=== PATIENT | male | born 1980 | race Caucasian/White ===

== ENCOUNTER → 2017-08-18 12:46 | Outpatient (CLI) | payer BC, SELFPAY ==
--- NOTE | 2017-08-18 12:54 | XR_ITS ---
XR hand RT min 3V HISTORY: ITS.REASON: FINGER PAIN DUE TO INJURY ORDERING PHYSICIAN: Jessica Ibarra PATIENT AGE: 37 years COMPARISON: None FINDINGS: There is a minimal displaced avulsion fracture involving the proximal and dorsal aspect of the distal phalanx of the middle finger. This is displaced proximally x 1 mm. No other significant anomalies are evident. This fracture is age indeterminate. Please correlate with clinical findings. IMPRESSION: Minimally displaced avulsion fracture at the distal phalanx of the middle finger age-indeterminate
== END ==
PROVIDERS: PCP Internal Medicine Adolescent Medicine; Visit Provider Nurse Practitioner Family
DX: M79.644 Pain in right finger(s) (principal); Y93.K9 Activity, other involving animal care
CPT/HCPCS: 73130

== ENCOUNTER 2017-11-01 15:30 | Outpatient (RCR) | payer BC, SELFPAY | END 2017-11-01 15:31 | disposition home or self-care (01) | LOC: PT 15:30 | PROVIDERS: Family Provider Internal Medicine Adolescent Medicine; PCP Internal Medicine Adolescent Medicine; Visit Provider Orthopaedic Surgery | DX: M79.641 Pain in right hand (principal); R60.0 Localized edema | CPT/HCPCS: 97110; 97140; 97161; 97760 ==

== ENCOUNTER → 2020-09-30 17:11 | Outpatient (CLI) | payer BC, SELFPAY | LOC: COVID.OUT 17:12 | PROVIDERS: PCP Internal Medicine Adolescent Medicine; Visit Provider Nurse Practitioner Family | DX: Z20.822 Contact with and (suspected) exposure to COVID-19 (principal); R50.9 Fever, unspecified | CPT/HCPCS: U0003 ==

== ENCOUNTER 2021-03-13 07:50 | Outpatient (CLI) | payer BC, SELFPAY ==
[2021-03-13] VITALS (9 sets, daily range): BP systolic 131–147; BP diastolic 71–82; PULSE 75–100; RESP 22; TEMP 37.2; O2SAT 93–100; BMI 42.8
== END 2021-03-13 10:47 | disposition home or self-care (01) ==
LOC: INF 07:53
PROVIDERS: PCP Internal Medicine Adolescent Medicine; Visit Provider Internal Medicine Adolescent Medicine
DX: U07.1 COVID-19 (principal)
CPT/HCPCS: 96365

== ENCOUNTER 2021-03-15 14:51 | Emergency (ER) | payer BC, SELFPAY ==
[2021-03-15 14:54] VITALS: BP 129/74; RESP 18; TEMP 36.6; O2SAT 93; BMI 40.4
--- NOTE | 2021-03-15 15:32 | HMH.EDNVD ---
ED Disposition Clinical Impression: Gastroenteritis Disposition: Home, Self-Care Condition on Discharge: Good Instructions: DI for Diarrhea and Traveler's Diarrhea -- Adult, DI for Nausea -- Adult Additional Instructions: Please isolate yourself from others in order to avoid spreading COVID-19. You may take [id number] antidiarrheal medicine. Stick with a clear liquid diet for the next few days. Take all medications as prescribed. Return to the emergency department if you feel worse in any way. Follow-up with your primary care physician in 4 to 5 days if you do not improve. Prescriptions: Ondansetron [Ondansetron Odt 8mg Tab] 8 mg PO QID 4 Days #16 tab Transmission Status: Pending to [id number] Referrals: Jamie Walden MD [Primary Care Provider] - - Critical Care Critical Care Time: No Attestation: On 03/15/21, the high probability of a clinically significant, sudden or life threatening deterioration of the following system(s) required my full and direct attention, intervention and personal management. The time I documented below is in addition to time spent performing reported procedures but includes the following listed in this critical care notation. Medical Decision Making - Medical Records Medical records reviewed: Yes: I reviewed the patient's medical records. - Harsh Inquiry Pt receiving controlled substance: No Vital Signs: 03/15/21 14:54 Temperature 97.9 F Temperature Source Oral Respiratory Rate 18 Blood Pressure [Right Arm] 129/74 Blood Pressure Mean [Right Arm] 92 Blood Pressure Source [Right Arm] Automatic Cuff 02 Sat by Pulse Oximetry 93 L Oxygen Delivery Method Room Air - Lab Data Lab results reviewed: Yes: I reviewed the patient's lab results. Lab Results 03/15/21 15:25: WBC 3.8 L, RBC 4.60, Hgb 14.6, Hct 42.7, MCV 92.8, MCH 31.8 H, MCHC 34.3, RDW 13.3, Plt Count 153, MPV 8.6, Neut % (Auto) 56.3, Lymph % (Auto) 37.1, [place] % (Auto) 5.6, Eos % (Auto) 0.1, Baso % (Auto) 0.8, Neut # (Auto) 2.1, Lymph # (Auto) 1.4, [place] # (Auto) 0.2, Eos # (Auto) 0.0, Baso # (Auto) 0.0 03/15/21 15:25: Sodium 138, Potassium 3.7, Chloride 102, Carbon Dioxide 28, Anion Gap 11.7, BUN 8 L, Creatinine 0.90, Estimated Creat Clear 190, Estimated GFR 93, Est GFR ( Amer) 113, Glucose 108 H, Calcium 8.5, Total Bilirubin 1.1, AST 72 H, ALT 50, Alkaline Phosphatase 76, Total Protein 7.1, Albumin 3.7, Globulin 3.4 H, Albumin/Globulin Ratio 1.1, Lipase 97 Result diagrams: 03/15/21 15:25 03/15/21 15:25 Orders (Tests/Meds): ED MEDICATIONS Discontinued Medications Generic Name Dose Route Start Last Admin Trade Name Magedq PRN Reason Stop Dose Admin Ondansetron HCl 4 mg 03/15/21 15:39 03/15/21 16:04 Ondansetron 4mg/2ml Vial IV 03/15/21 15:40 4 mg ONCE ONE Administration Medical Decision Narrative: The patient is now tolerating fluids by mouth without vomiting. Patient has a known history of COVID-19. I suspect that his symptoms are secondary to COVID-19. The patient's laboratory work-up was essentially unremarkable with the exception of a low white blood cell count which is a expected finding with COVID-19. The patient will be discharged in stable and improved condition with a prescription for Zofran. Nausea/Vomiting/Diarrhea HPI - General Chief complaint: Nausea/Vomiting/Diarrhea Stated complaint: covid pos 03/05 fever,bodyaches Time Seen by Provider: 03/15/21 15:32 Mode of Arrival: Ambulatory Limitations: No Limitations Description of Symptoms (Recalled from ER Triage Doc. by RN): patient tested positive for COVID pm 03/05. patient received Regen Cov infusion on 03/13/2021. patient states that he feels like he is not getting any better and now has increasing nausea and vomiting. patient is rehydrating self with fluids, but cannot eat solid foods yet. - History of Present Illness HPI Narrative: The patient presents to the emergency department complaining
[2021-03-15 15:47] LABS: Basophils % 0.8 % (0.1-2.0); Eosinophils % 0.1 % (0.1-12.0); Hematocrit 42.7 % (42.0-52.0); Hemoglobin 14.6 g/dL (14.1-18.0); Lymphocytes # 1.4 K/mm3 (0.7-4.5); Lymphocytes % 37.1 % (10-50); Mean Corpuscular HGB Conc 34.3 g/dL (31.8-35.4); Mean Corpuscular Hemoglobin 31.8 pg (27.0-31.2); Mean Corpuscular Volume 92.8 fl (80-94); Mean Platelet Volume 8.6 fl (7.4-10.4); Monocytes # 0.2 K/mm3 (0.1-1.0); Monocytes % 5.6 % (1.7-9.3); Neutrophils # 2.1 K/mm3 (1.8-7.8); Neutrophils % 56.3 % (37.0-80.0); Platelet Count 153 K/mm3 (142-424); Red Cell Distribution Width 13.3 % (11.5-17.5); White Blood Count 3.8 K/mm3 (4.8-10.8)
[2021-03-15 15:49] LABS: Chloride 102 mmol/L (98-107); Potassium 3.7 mmoL/L (3.5-5.1); Sodium 138 mmol/L (136-145)
[2021-03-15 15:51] LABS: Alanine Aminotransferase 50 U/L (12-78); Aspartate Amino Transferase 72 U/L (17-59); Blood Urea Nitrogen 8 mg/dl (9-20); Creatinine Clearance Estimated 190 mL/min (50-200); Estimated Glomerular Filt Rate 93 ml/min (>60); GFR (African American) 113 ML/MIN (>60)
[2021-03-15 15:52] LABS: Albumin Level 3.7 g/dl (3.5-5.0); Albumin/Globulin Ratio 1.1 (1.1-1.8); Alkaline Phosphatase 76 U/L (38-126); Anion Gap 11.7 mEq/L (5-15); Bilirubin,Total 1.1 mg/dl (0.2-1.3); Calcium 8.5 mg/dl (8.4-10.2); Carbon Dioxide 28 mmol/L (22.0-30.0); Globulin 3.4 g/dL (1.3-3.2); Glucose 108 mg/dl (74-100); Lipase 97 U/L (23-300); Total Protein,Serum 7.1 g/dl (6.3-8.2)
[2021-03-15 16:50] VITALS: BP 131/83; PULSE 70; RESP 18; TEMP 37.1; O2SAT 96
== END 2021-03-15 16:59 | disposition home or self-care (01) ==
PROVIDERS: Emergency Provider Emergency Medicine; PCP Internal Medicine Adolescent Medicine
DX: K52.9 Noninfective gastroenteritis and colitis, unspecified (principal); U07.1 COVID-19
CPT/HCPCS: 80053; 83690; 85025; 96374; 99282; J2405

== ENCOUNTER 2022-12-18 13:24 | Emergency (ER) | payer BC, SELFPAY ==
[2022-12-18 13:35] VITALS: BP 131/86; PULSE 74; RESP 18; TEMP 36.7; O2SAT 100; BMI 37.7
[2022-12-18 13:57] LABS: UTC Strep Screen (Rapid) Negative (Negative)
[2022-12-18 13:58] VITALS: BP 131/86; PULSE 74; RESP 18; TEMP 36.7; O2SAT 100
--- NOTE | 2022-12-18 14:07 | EXP.UTC ---
Discharge Plan Disposition Patient Disposition: Home, Self-Care Condition: Good Prescriptions Prescriptions: New azithromycin [azithromycin] 250 mg tablet 250 mg PO DIRECTED Qty: 6 0RF Rx Instructions: Take two (2) tablets on day #1, then one (1) tablet day #2 thru #5 Referrals Follow up/Referrals: Jamie Walden MD [Primary Care Provider] - See instructions Activity Restrictions/Add. Instructions Additional Instructions/Restrictions: Change toothbrush and toothpaste 24-48 hours after starting antibiotics Tylenol or Motrin as needed for fever or pain Encourage fluids, water, Gatorade, Powerade, try cold fluids, popsicles, ice cream will make it feel better You are contagious for 24 hours. Avoid kissing anyone, no eating or drinking after anyone. You are contagious. Follow-up the ER for new or worsening symptoms or no noticeable improvement over the next 24-48 hours. Follow-up with PCP this week. Clinical Impressions Clinical Impression: Strep sore throat Instructions Patient Instructions: DI for Strep Throat Discharge ED Provider: Giancarlo ([facility])Maryam [facility] [place] HPI General Stated complaint: sore throat, cough Mode of Arrival: Ambulatory Source of Information: Patient Limitations: No Limitations Time Seen by Provider: 12/18/22 14:07 Description of Symptoms (Recalled from Triage Doc. by RN): PATIENT C/O SORE THROAT AND COUGH SINCE YESTERDAY HEENT Symptoms (Recalled from RN notes): Yes Resp Symptoms (Recalled from RN notes): Yes Skin Symptoms (Recalled from RN notes): No MS Symptoms (Recalled from RN notes): No Functional Status (Recalled from RN notes): WNL History of Present Illness Provider Complaint: 42 yr old male presents with sore throat since , son has strep Related Data Previous Rx's Medication Instructions Recorded azithromycin 250 mg tablet 250 mg PO DIRECTED #6 tabs 12/18/22 Allergies Allergy/AdvReac Type Severity Reaction Status Date / Time ibuprofen [IBUPROFEN] Allergy Unknown Verified 03/30/18 19:18 Worker's Comp Is this a Worker's Comp case?: No [facility] Disclaimer: The information contained in this section may have been updated after the patient was seen, as this information can be updated by other users. Social History , [employer]) Smoking Status: Never smoker alcohol intake: never substance use type: denies use current occupational status: employed Travel in the last 8 weeks: None ROS Obtained: Yes All systems reviewed & no additional complaints except as documented Constitutional Constitutional: Reports system reviewed and no additional complaints, except as documented and Reports as per HPI Eyes Eyes: Reports system reviewed and no additional complaints, except as documented ENT Ears, Nose, Mouth, and Throat: Reports system reviewed and no additional complaints, except as documented, Reports as per HPI and Reports sore throat Cardiovascular Cardiovascular: Reports system reviewed and no additional complaints, except as documented Respiratory Respiratory: Reports system reviewed and no additional complaints, except as documented Gastrointestinal Gastrointestingal: Reports system reviewed and no additional complaints, except as documented Musculoskeletal Musculoskeletal: Reports system reviewed and no additional complaints, except as documented Neurologic Neurologic: Reports system reviewed and no additional complaints, except as documented Endocrine Endocrine: Reports system reviewed and no additional complaints, except as documented Hematologic/Lymphatic Henatologic/Lymphatic: Reports system reviewed and no additional complaints, except as documented Allergic/Immunologic Allergic/Immunologic: Reports system reviewed and no additional complaints, except as documented Physical Exam General General appearance: alert and in no apparent distress Head Head exam: atraumatic Eye Eye exam: Present
== END 2022-12-18 14:08 | disposition home or self-care (01) ==
PROVIDERS: Emergency Provider Nurse Practitioner Family; PCP Internal Medicine Adolescent Medicine
DX: J02.0 Streptococcal pharyngitis (principal)
CPT/HCPCS: 87880; 99204; 99212; G0463

== ENCOUNTER 2023-09-11 10:02 | Emergency (ER) | payer BC, SELFPAY ==
[2023-09-11 10:20] VITALS: BP 130/90; PULSE 72; RESP 18; TEMP 36.9; O2SAT 97; BMI 46.3
--- NOTE | 2023-09-11 10:22 | ED_ITS ---
Discharge Plan Disposition Patient Disposition: Home, Self-Care Condition: Good Prescriptions Prescriptions: New azithromycin [Zithromax] 250 mg tablet 250 mg PO UD DOSE PK Qty: 6 0RF Rx Instructions: Take two (2) tablets today, then one (1) tablet days #2 thru #5 benzonatate [benzonatate] 100 mg capsule 100 mg PO TIDP PRN (Reason: Cough) Qty: 30 0RF methylprednisolone 4 mg Tablets,Dose Pack 4 mg PO DIRECTED 6 Days Qty: 21 0RF Rx Instructions: Take 1 pack as directed for 6 days Referrals Follow up/Referrals: Jamie Walden MD [Primary Care Provider] - See instructions Activity Restrictions/Add. Instructions Additional Instructions/Restrictions: Drink plenty of fluids. Take tylenol or ibuprofen for pain or fever. Take the medications as directed. Follow up with your regular doctor. GO TO THE ER FOR ANY WORSENING SYMPTOMS Clinical Impressions Clinical Impression: Sinusitis Instructions Patient Instructions: Sinusitis, DI for Sinusitis Discharge ED Provider: Rebel Johnson [facility] General Stated complaint: congestion, runny nose, pain in face Time Seen by Provider: 09/11/23 10:21 History of Present Illness Provider Complaint: He states that for the past 5 days he has had worsening sinus congestion and sinus pressure. Related Data Previous Rx's Medication Instructions Recorded azithromycin 250 mg tablet 250 mg PO UD DOSE PK #6 tabs 09/11/23 (Zithromax) benzonatate 100 mg capsule 100 mg PO TIDP PRN Cough #30 caps 09/11/23 methylprednisolone 4 mg tablets in 4 mg PO DIRECTED 6 days #21 tabs 09/11/23 a dose pack Allergies Allergy/AdvReac Type Severity Reaction Status Date / Time ibuprofen [IBUPROFEN] Allergy Unknown Verified 09/11/23 10:30 [facility] Disclaimer: The information contained in this section may have been updated after the patient was seen, as this information can be updated by other users. Social History Smoking Status: Never smoker alcohol intake: never substance use type: denies use current occupational status: employed Travel in the last 8 weeks: None ROS Obtained: Yes All systems reviewed & no additional complaints except as documented Constitutional Constitutional: Reports poor appetite Eyes Eyes: Reports system reviewed and no additional complaints, except as documented ENT Ears, Nose, Mouth, and Throat: Reports as per HPI Cardiovascular Cardiovascular: Reports system reviewed and no additional complaints, except as documented and Denies chest pain Respiratory Respiratory: Denies shortness of breath, Reports chest congestion, Reports cough, Denies stridor and Denies wheezing Gastrointestinal Gastrointestingal: Reports system reviewed and no additional complaints, except as documented; Denies abdominal pain, diarrhea or vomiting Musculoskeletal Musculoskeletal: Reports system reviewed and no additional complaints, except as documented and Denies arthralgias Integumentary/Breasts Skin/Breast: Reports system reviewed and no additional complaints, except as documented and Denies rash Neurologic Neurologic: Denies paresthesias Allergic/Immunologic Allergic/Immunologic: Denies wheezing Physical Exam General General appearance: alert and in no apparent distress Eye Eye exam: Present normal appearance, PERRL and EOMI ENT ENT exam: Present mucous membranes moist and normal external ear exam Expanded ENT Exam External ear exam: Present normal external inspection TM/Canal exam: Bilateral TM: erythema and bulging Nose exam: Absent sinus tenderness Nasal speculum exam: Bilateral: normal Mouth exam: Present normal external inspection; Absent drooling Teeth exam: Present normal inspection Throat exam: Present tonsillar erythema and tonsillomegaly Neck Neck exam: Present normal inspection, full ROM and trachea midline; Absent tenderness, lymphadenopathy or thyromegaly Chest Chest inspection: Present normal inspection and symmetric chest wall rise; Absent tenderness or rash Respiratory Respiratory exam: Present normal lung sounds bilaterally; Absent respiratory distress, wheezes, stridor or accessory muscle use Cardiovascular Cardiovascular exam: Present regular rate, normal rhythm and normal heart sounds Abdominal Exam Abdominal exam: Present soft; Absent distention, tenderness, guarding, rebound or rigidity Extremities Exam Extremities exam: Present normal inspection, full ROM and normal capillary refill; Absent tenderness or calf tenderness Back Exam Back exam: Present normal inspection and full ROM; Absent tenderness Neurological Exam Neurological exam: Present alert and oriented X3 Psychiatric Psychiatric exam: Present normal affect and normal mood Skin Skin exam: Present warm, dry, intact and normal color Lymphatic Lymphatic Findings: no adenopathy Medical Decision Making Medical Records Medical records reviewed: No I reviewed the patient's medical records. Harsh Inquiry Pt receiving controlled substance: No
[2023-09-11 11:00] VITALS: BP 130/90; PULSE 72; RESP 18; TEMP 36.9; O2SAT 97
== END 2023-09-11 11:00 | disposition home or self-care (01) ==
PROVIDERS: Emergency Provider Nurse Practitioner Family; PCP Internal Medicine Adolescent Medicine
DX: J01.90 Acute sinusitis, unspecified (principal); R09.81 Nasal congestion; R05.9 Cough, unspecified
CPT/HCPCS: 99212; 99214; G0463

== ENCOUNTER 2024-01-28 11:25 | Emergency (ER) | payer BC, SELFPAY ==
[2024-01-28 11:30] VITALS: BP 124/67; PULSE 65; RESP 18; TEMP 36.7; O2SAT 100; BMI 43.0
--- NOTE | 2024-01-28 11:41 | XR_ITS ---
PROCEDURE INFORMATION: Exam: XR Left Ribs with PA Chest Exam date and time: 01/28/2024 11:40 AM Age: 43 years old Clinical indication: Injury or trauma; Fall; Rib area, left side; Blunt trauma TECHNIQUE: Imaging protocol: Radiologic exam of the left ribs with PA chest. Views: 3 views COMPARISON: No relevant prior studies available. FINDINGS: Lungs: No consolidation or lung nodules. Pleural spaces: No pleural effusion. No pneumothorax. Heart/Mediastinum: No abnormalities. No cardiomegaly. No pulmonary vascular congestion. Bones/joints: No fractures or bone lesions. IMPRESSION: No acute findings in the chest. No rib fractures.
--- NOTE | 2024-01-28 11:42 | EXP.UTC ---
Discharge Plan Disposition Patient Disposition: Home, Self-Care Condition: Good Referrals Follow up/Referrals: Jamie Walden MD [Primary Care Provider] - See instructions Activity Restrictions/Add. Instructions Additional Instructions/Restrictions: Over the counter Motrin and/or Tylenol for pain Over the countr Lidocaine patches may help with pain Make sure to take deep breaths and cough Follow up with your Family Doctor if no improvment or any worsening of symptoms straight to ER if any life threatening symptoms Clinical Impressions Clinical Impression: Pain in rib Instructions Patient Instructions: DI for Rib Contusion Discharge ED Provider: Elba Navarro [facility] General Stated complaint: ao 01/26 rib pain Mode of Arrival: Ambulatory Source of Information: Patient Limitations: No Limitations Time Seen by Provider: 01/28/24 11:42 Description of Symptoms (Recalled from Triage Doc. 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 and fell and landed on his left side States that there was a raise in the ground there and he hit his left ribs on it States since then he has been having pain in his left ribs worse with movement and deep breath so today he came in to get checked worried he may have a broken rib Related Data Allergies Allergy/AdvReac Type Severity Reaction Status Date / Time ibuprofen [IBUPROFEN] Allergy Unknown Verified 09/11/23 10:30 Worker's Comp Is this a Worker's Comp case?: No [facility] Disclaimer: The information contained in this section may have been updated after the patient was seen, as this information can be updated by other users. Social History Smoking Status: Never smoker alcohol intake: never substance use type: denies use current occupational status: employed Travel in the last 8 weeks: None ROS Obtained: Yes All systems reviewed & no additional complaints except as documented and Yes Systems reviewed as appropriate & no additional complaints except as documented Constitutional Constitutional: Reports system reviewed and no additional complaints, except as documented and Reports as per HPI Cardiovascular Cardiovascular: Reports system reviewed and no additional complaints, except as documented, Reports as per HPI and Denies chest pain Respiratory Respiratory: Reports system reviewed and no additional complaints, except as documented, Reports as per HPI, Reports pain on inspiration, Reports pain with cough and Reports other Comments: Pain in left ribs with movement and breathing after falling yesterday Physical Exam General General appearance: alert and in no apparent distress ENT ENT exam: Present mucous membranes moist Respiratory Respiratory exam: Present normal lung sounds bilaterally; Absent respiratory distress or wheezes Cardiovascular Cardiovascular exam: Present regular rate, normal rhythm and normal heart sounds Neurological Exam Neurological exam: Present alert, oriented X3 and normal gait Medical Decision Making Harsh Inquiry Pt receiving controlled substance: No Harsh was queried for this patient: No Vital Signs: 01/28/24 11:30 Temperature 98.0 F Temperature Source Oral Pulse Rate [Left Brachial] 65 Respiratory Rate 18 Blood Pressure [Left Arm] 124/67 Blood Pressure Mean [Left Arm] 86 Blood Pressure Source [Left Arm] Automatic Cuff Blood Pressure Position [Left Arm] Sitting 02 Sat by Pulse Oximetry 100 Oxygen Delivery Method Room Air Orders (Tests/Meds): ORDERS Category Date Time Status XR ribs LT min 3V w CXR1V Stat Exams 01/28/24 11:41 Ordered Radiology Data #1: Image(s): Chest (ribs) Image Reviewed: Yes I have reviewed radiologist's interpretation IMPRESSION: No acute findings in the chest. No rib fractures.
[2024-01-28 13:20] VITALS: BP 124/67; PULSE 65; RESP 18; TEMP 36.7; O2SAT 100
== END 2024-01-28 13:24 | disposition home or self-care (01) ==
PROVIDERS: Emergency Provider Nurse Practitioner; PCP Internal Medicine Adolescent Medicine
DX: R07.81 Pleurodynia (principal); R07.1 Chest pain on breathing; W01.198A Fall on same level from slipping, tripping and stumbling with subsequent striking against other object, initial encounter
CPT/HCPCS: 71101; 99212; 99213; G0463

== ENCOUNTER 2024-06-10 07:36 | Outpatient (CLI) | payer BC, SELFPAY ==
[2024-06-10 07:57] LABS: Basophils # 0.1 K/mm3 (0-0.2); Basophils % 0.7 % (0.1-2.0); Eosinophils % 0.3 % (0.1-12.0); Hematocrit 44.2 % (42.0-52.0); Lymphocytes # 2.5 K/mm3 (0.7-4.5); Lymphocytes % 31.1 % (10-50); Mean Corpuscular HGB Conc 33.9 g/dL (31.8-35.4); Mean Corpuscular Hemoglobin 30.9 pg (27.0-31.2); Mean Corpuscular Volume 91.3 fl (80-94); Mean Platelet Volume 7.5 fl (7.4-10.4); Monocytes # 0.5 K/mm3 (0.1-1.0); Monocytes % 6.4 % (1.7-9.3); Neutrophils # 4.9 K/mm3 (1.8-7.8); Neutrophils % 61.5 % (37.0-80.0); Platelet Count 213 K/mm3 (142-424); Red Blood Count 4.85 M/mm3 (4.60-6.20); Red Cell Distribution Width 13.4 % (11.5-17.5)
[2024-06-10 08:36] LABS: Alanine Aminotransferase 48 U/L (12-78); Albumin Level 4.3 g/dl (3.5-5.0); Albumin/Globulin Ratio 1.4 (1.1-1.8); Alkaline Phosphatase 79 U/L (38-126); Anion Gap 13.1 mEq/L (5-15); Aspartate Amino Transferase 40 U/L (17-59); Bilirubin,Total 0.9 mg/dl (0.2-1.3); Blood Urea Nitrogen 18 mg/dl (9-20); Calcium 9.4 mg/dl (8.4-10.2); Carbon Dioxide 26 mmol/L (22.0-30.0); Chloride 106 mmol/L (98-107); Chol/HDL Ratio 3.6 (1-3.5); Cholesterol 162 mg/dl (140-200); Estimated Glomerular Filt Rate 81 ml/min (>60); GFR (African American) 98 ML/MIN (>60); Glucose 109 mg/dl (74-100); HDL Cholesterol 45 mg/dl (40-60); Potassium 4.1 mmoL/L (3.5-5.1); Sodium 141 mmol/L (136-145); Total Protein,Serum 7.3 g/dl (6.3-8.2); Triglycerides 143 mg/dl (30-150); VLDL Cholesterol 29 mg/dL (0-40)
[2024-06-10 08:41] LABS: Hemoglobin A1C 5.1 % (4.0-6.0)
[2024-06-10 08:47] LABS: Direct LDL Cholesterol 97.92 mg/dL (100-129)
[2024-06-10 09:06] LABS: Prostate Specific Ag Screen 0.7 ng/ml (0.0-4.0)
== END 2024-06-10 23:59 | disposition home or self-care (01) ==
LOC: LAB 07:39
PROVIDERS: PCP Internal Medicine Adolescent Medicine; Visit Provider Internal Medicine Adolescent Medicine
DX: Z12.5 Encounter for screening for malignant neoplasm of prostate (principal); E78.5 Hyperlipidemia, unspecified
CPT/HCPCS: 36415; 80053; 80061; 83036; 85025; G0103

== ENCOUNTER 2024-06-24 07:57 | Emergency (ER) | payer BC, SELFPAY ==
[2024-06-24 08:05] VITALS: BP 122/77; PULSE 80; RESP 19; TEMP 36.8; O2SAT 98; BMI 41.5
--- NOTE | 2024-06-24 08:20 | ED_ITS ---
Discharge Plan Disposition Patient Disposition: Home, Self-Care Condition: Good Prescriptions Prescriptions: New amoxicillin 875 mg tablet 875 mg PO Q12H Qty: 20 0RF fluticasone propionate [Flonase Allergy Relief] 50 mcg/actuation spray,suspension 2 spray intranasal DAILY Qty: 16 0RF Rx Instructions: administer into each nostril daily Referrals Follow up/Referrals: Jamie Walden MD [Primary Care Provider] - See instructions Activity Restrictions/Add. Instructions Additional Instructions/Restrictions: *Monitor Temp, Over the counter Motrin or Tylenol as directed/as needed Tylenol every 4 hours and Motrin every 6 hours (as long as your family doctor has told you that you can take it) for fever or pain. and straight to ER if unable to lower temp less than 101.0 after medication given *Warm salt water gargles may help to soothe the throat *Throat Lozenges? *Warm fluids like tea with honey may help to soothe the throat? *Sleep elevated *Humidifier/Vaporizer *Flonase 2 sprays in each nostril daily but be aware that it may take 2-3 days before you notice improvement Your throat swab was sent for culture. Those results are typically sent to your primary care. Be sure to follow up in 2-3 days with your family doctor/primary care physician if no improvement so they can review those result and treat if necessary. If you don?t have a primary care doctor, I recommend you get one but in the mean time, you will have to return to a walk in clinic Follow up IMMEDIATELY for new or worsening symptoms or no Noticeable improvement over the next 48-72 hours. 911 for difficulty breathing or swallowing Clinical Impressions Clinical Impression: Otitis media Instructions Patient Instructions: Middle Ear Infection, Ear Infections (Alternative Therapy), Amoxicillin Print Language Print Language: Upper Sorbian Discharge ED Provider: Elba Navarro [facility] [place] HPI General Stated complaint: sore throat, cough Mode of Arrival: Ambulatory Source of Information: Patient Limitations: No Limitations Time Seen by Provider: 06/24/24 08:20 Description of Symptoms (Recalled from Triage Doc. by RN): PATIENT C/O SORE THROAT AND RIGHT EAR PAIN SINCE MONDAY MORNING HEENT Symptoms (Recalled from RN notes): Yes Resp Symptoms (Recalled from RN notes): No Skin Symptoms (Recalled from RN notes): No MS Symptoms (Recalled from RN notes): No Functional Status (Recalled from RN notes): WNL History of Present Illness Provider Complaint: Patient states that for the last couple of days he has been having pain in his right ear and sore throat States today his ear was bothering him more so he came in to get checked worried he may have an ear infection or strep throat Related Data Previous Rx's ?Medication ?Instructions ?Recorded amoxicillin 875 mg tablet 875 mg PO Q12H #20 tabs 06/24/24 fluticasone propionate 50 2 spray intranasal DAILY #16 grams 06/24/24 mcg/actuation nasal spray,suspension (Flonase Allergy Relief) Allergies Allergy/AdvReac Type Severity Reaction Status Date / Time ibuprofen (IBUPROFEN) Allergy Unknown Verified 09/11/23 10:30 Worker's Comp Is this a Worker's Comp case?: No [facility] Disclaimer: The information contained in this section may have been updated after the patient was seen, as this information can be updated by other users. Medical History (Updated 06/24/24 @ 08:40 by Elba Navarro APRN) No significant past medical history Social History Smoking Status: Never smoker alcohol intake: never substance use type: denies use current occupational status: employed Travel in the last 8 weeks: None Have you lived/traveled outside [place] in past 30 days?: No Contact w/someone who lives/traveled outside US past 30 days?: No Exposure to someone with infectious disease in past 14 days?: No Do you have a fever (greater than 100.4 F or 38 C)?: No Have you tested positive for COVID-19: No Exposed to someone with COVID-19 in past 14 days?: No Do you have a sore throat?: Yes Do you have a cough?: Yes Do you have any weakness?: No Do you have any diarrhea?: No Are you experiencing any unusual bleeding?: No Do you have any muscle aches/pain?: No Do you have any abdominal pain?: No Are you experiencing loss of taste or smell?: No ROS Obtained: Yes All systems reviewed & no additional complaints except as documented and Yes Systems reviewed as appropriate & no additional complaints except as documented Constitutional Constitutional: Reports system reviewed and no additional complaints, except as documented and Reports as per HPI ENT Ears, Nose, Mouth, and Throat: Reports system reviewed and no additional complaints, except as documented, Reports as per HPI, Reports otalgia and Reports sore throat Cardiovascular Cardiovascular: Reports system reviewed and no additional complaints, except as documented and Reports as per HPI Respiratory Respiratory: Reports system reviewed and no additional complaints, except as documented and Reports as per HPI Gastrointestinal Gastrointestingal: Reports system reviewed and no additional complaints, except as documented and as per HPI Genitourinary Male Genitourinary: Reports system reviewed and no additional complaints, except as documented and Reports as per HPI Musculoskeletal Musculoskeletal: Reports system reviewed and no additional complaints, except as documented and Reports as per HPI Physical Exam General General appearance: alert and in no apparent distress ENT ENT exam: Present mucous membranes moist Expanded ENT Exam TM/Canal exam: Right TM: erythema and bulging Nose exam: Absent sinus tenderness Throat exam: Present tonsillar erythema Respiratory Respiratory exam: Present normal lung sounds bilaterally; Absent respiratory distress or wheezes Cardiovascular Cardiovascular exam: Present regular rate, normal rhythm and normal heart sounds Abdominal Exam Abdominal exam: Present soft and normal bowel sounds; Absent distention or t enderness Neurological Exam Neurological exam: Present alert, oriented X3 and normal gait Medical Decision Making Medical Records Screening: Per USPSTF and CDC recommendations, given the prevalence of disease in our region, it is our hospital?s policy to screen for HIV and viral Hepatitis for all patients aged 18 and over and those with ongoing risk factors. Harsh Inquiry Pt receiving controlled substance: No Harsh was queried for this patient: No Vital Signs: 06/24/24 08:05 Temperature 98.3 F Temperature Source Oral Pulse Rate [Left Brachial] 80 Respiratory Rate 19 Blood Pressure [Left Arm] 122/77 Blood Pressure Mean [Left Arm] 92 Blood Pressure Source [Left Arm] Automatic Cuff Blood Pressure Position [Left Arm] Sitting 02 Sat by Pulse Oximetry 98 Oxygen Delivery Method Room Air Lab Data Lab results reviewed: Yes I reviewed the patient's lab results.
[2024-06-24 08:33] LABS: UTC Strep Screen (Rapid) Negative (Negative)
[2024-06-24 08:41] VITALS: BP 122/77; PULSE 80; RESP 19; TEMP 36.8; O2SAT 98
== END 2024-06-24 08:44 | disposition home or self-care (01) ==
PROVIDERS: Emergency Provider Nurse Practitioner; PCP Internal Medicine Adolescent Medicine
DX: H66.93 Otitis media, unspecified, bilateral (principal)
CPT/HCPCS: 87880; 99213; G0381

== ENCOUNTER 2025-04-17 11:30 | Emergency (ER) | payer BC, SELFPAY ==
[2025-04-17 11:43] VITALS: BP 144/70; PULSE 90; RESP 20; TEMP 36.9; O2SAT 98; BMI 43.0
--- NOTE | 2025-04-17 12:03 | CT_ITS ---
FINAL REPORT TECHNIQUE: Thin section axial images were obtained through the abdomen after intravenous contrast. Reconstruction images were obtained from the axial data. Exam was performed using dose reduction techniques. CLINICAL HISTORY: Periumbilical hernia reduced, severe abdominal pamela FINDINGS: The lung bases are clear. The liver is homogeneous. The gallbladder is present. The spleen is mildly enlarged. The adrenal and pancreas are unremarkable. There is no hydronephrosis or solid renal mass. There is no abdominal lymphadenopathy or ascites. There is a hernia just to the left midline and umbilicus. Abdominal wall defect measures 16 mm. There is fat and abnormal attenuation within the hernia sac, incarceration is not excluded. There is no evidence of small bowel obstruction. The appendix is normal. There is no pelvic lymphadenopathy or ascites. No acute osseous abnormalities identified. IMPRESSION: Paraumbilical hernia containing fat and abnormal attenuation, incarceration is not excluded. This does not contain GI tract. Reviewed, Interpreted and Dictated by Tiesha Qureshi MD Transcribed by Marleni Rogers Authenticated and [facility]
--- NOTE | 2025-04-17 12:04 | ED_ITS ---
Discharge Plan Disposition Patient Disposition: Home, Self-Care Referrals Follow up/Referrals: Jamie Walden MD [Primary Care Provider, Internal Medicine] - See instructions Jarocho Butterfield MD [Staff Physician, General Surgery] - See instructions Activity Restrictions/Add. Instructions Additional Instructions/Restrictions: At this time it was felt you are safe to be discharged home. If new or worsening symptoms please do not hesitate to return the emergency department. Please call and schedule appoint with Dr. Butterfield as soon as you are able. Clinical Impressions Clinical Impression: Periumbilical hernia Instructions Patient Instructions: DI for Acute Abdominal Pain Print Language Print Language: Upper Sorbian Discharge ED Provider: Marc Petersen General Adult HPI General Chief complaint: Abdominal Pain Stated complaint: abd pain Time Seen by Provider: 04/17/25 11:44 Mode of Arrival: Ambulatory Source of Information: Patient Description of Symptoms (Recalled from ER Triage Doc. by RN): severe abdominal pain. around the umbilicus area. hardened. pt states he has a hx of a hernia. History of Present Illness HPI narrative: Patient is a 44-year-old male who presents emergency department for evaluation of pain. He has a history of periumbilical hernia. No vomiting, last bowel movement this morning nonbloody. Moderate to severe periumbilical pain causing present here for continued evaluation. No other acute complaints at this time. No abdominal surgical history. Allergies to ibuprofen non-smoker. Please note that above description of symptoms, in this electronic medical record under categorization of recalled from ER triage doctor by RN are reflective of an initial nursing assessment, however, is not reflective of my full history and physical exam that was personally taken and clarified. Consequentially, this preceding description of symptoms, which may include the patient's categorized chief complaint in the EMR, do not reflect my personal clinical impression, and the ultimate description of history of present illness and patient stated complaints should be deferred to this section of the note. Unless stated otherwise or congruent with this section of the note, additional signs, symptoms, or incongruence should be interpreted as inaccurate with my clinical impression. Related Data Allergies Allergy/AdvReac Type Severity Reaction Status Date / Time ibuprofen (IBUPROFEN) Allergy Severe angioedema Verified 12/02/24 11:48 [facility] Disclaimer: The information contained in this section may have been updated after the patient was seen, as this information can be updated by other users. Medical History No significant past medical history Social History Smoking Status: Never smoker alcohol intake: never substance use type: denies use current occupational status: employed Travel in the last 8 weeks?: None Have you lived/traveled outside US in past 30 days?: No Contact w/someone who lives/traveled outside US past 30 days?: No Exposure to someone with infectious disease in past 14 days?: No Do you have a fever (greater than 100.4 F or 38 C)?: No Have you tested positive for COVID-19?: No Exposed to someone with COVID-19 in past 14 days?: No Do you have a sore throat?: No Do you have a cough?: No Do you have any weakness?: No Do you have any diarrhea?: No Are you experiencing any unusual bleeding?: No Do you have any muscle aches/pain?: No Do you have any abdominal pain?: No Are you experiencing loss of taste or smell?: No Other Medical History Have you received the Flu Vaccine for this season: No Have you received the Pneumonia Vaccine: No ROS Obtained: Yes Systems reviewed as appropriate & no additional complaints except as documented Physical Exam General General appearance: alert and in no apparent distress Head Head exam: atraumatic and normocephalic Eye Eye exam: Present PERRL and EOMI ENT ENT exam: Present mucous membranes moist Neck Neck exam: Present normal inspection Chest Chest inspection: Present normal inspection and symmetric chest wall rise Respiratory Respiratory exam: Present normal lung sounds bilaterally; Absent respiratory distress Cardiovascular Cardiovascular exam: Present regular rate and normal rhythm Abdominal Exam Abdominal exam: Present soft and tenderness (Periumbilical hernia that is not dusky, is reducible with constant pressure although painful. Periumbilical tenderness. No rebound.); Absent rigidity Extremities Exam Extremities exam: Present normal inspection Neurological Exam Neurological exam: Present alert Psychiatric Psychiatric exam: Present normal affect Skin Skin exam: Present warm and dry Medical Decision Making Medical Records Screening: Per USPSTF and CDC recommendations, given the prevalence of disease in our region, it is our hospital?s policy to screen for HIV and viral Hepatitis for all patients aged 18 and over and those with ongoing risk factors. Harsh Inquiry Pt receiving controlled substance: No Vital Signs: 04/17/25 11:43 04/17/25 12:17 04/17/25 12:31 Temperature 98.5 F Temperature Source Oral Pulse Rate 68 54 L Pulse Rate [Right] 90 Respiratory Rate 20 Blood Pressure 115/59 L 123/67 Blood Pressure [Right Arm] 144/70 H Blood Pressure Mean [Right Arm] 94 02 Sat by Pulse Oximetry 98 96 97 04/17/25 12:45 04/17/25 13:01 Temperature Temperature Source Pulse Rate 64 47 L Pulse Rate [Right] Respiratory Rate Blood Pressure 119/69 120/52 L Blood Pressure [Right Arm] Blood Pressure Mean [Right Arm] 02 Sat by Pulse Oximetry 97 97 Lab Data Lab Results 04/17/25 11:45: WBC 8.8, RBC 5.15, Hgb 16.1, Hct 46.9, MCV 91.1, MCH 31.3 H, MCHC 34.3, RDW 12.4, Plt Count 234, MPV 9.4, Neut % (Auto) 69.7, Lymph % (Auto) 22.6, Deuel % (Auto) 6.9, Eos % (Auto) 0.1, Baso % (Auto) 0.2, Neut # (Auto) 6.2, Lymph # (Auto) 2.0, Deuel # (Auto) 0.6, Eos # (Auto) 0.0, Baso # (Auto) 0.0, Sodium 140, Potassium 4.4, Chloride 101, Carbon Dioxide 29, Anion Gap 14.4, BUN 18, Creatinine 1.10, Estimated Creat Clear 88, Estimated GFR 72, Est GFR ( Amer) 88, Glucose 114 H, Lactate 1.2, Calcium 9.4, Total Bilirubin 1.3, AST 44, ALT 50, Alkaline Phosphatase 102, Troponin I < 0.01, Total Protein 8.2, Albumin 4.6, Globulin 3.6 H, Albumin/Globulin Ratio 1.3, Lipase 59, Urine Color Yellow, Urine Appearance Clear, Urine pH 6.0, Ur Specific Sanford 1.025, Urine Protein Negative, Urine Glucose (UA) Negative, Urine Ketones Negative, Urine Blood Negative, Urine Nitrate Negative, Urine Bilirubin Negative, Urine Urobilinogen 0.2, Ur Leukocyte Esterase Negative, Urine RBC None, Urine WBC None, Ur Squamous Epith Cells Occasional, Urine Bacteria Trace 04/17/25 11:45 04/17/25 11:45 Orders (Tests/Meds): ED MEDICATIONS Discontinued Medications Generic Name Dose Route Start Last Admin Trade Name Mirza PRN Reason Stop Dose Admin Acetaminophen 1,000 mg 04/17/25 12:03 04/17/25 12:20 Acetaminophen 1,000mg/100ml Vial IV 04/17/25 12:04 1,000 mg ONCE ONE Administration Iopamidol 75 ml 04/17/25 12:09 04/17/25 12:10 Iopamidol-370 (76%);100ml Bottle IV 04/17/25 12:10 75 ml ONCE ONE Administration Morphine Sulfate 4 mg 04/17/25 12:03 04/17/25 12:20 Morphine 4mg/Ml Syringe IV 04/17/25 12:04 4 mg ONCE ONE Administration Ondansetron HCl 4 mg 04/17/25 12:03 04/17/25 12:20 Ondansetron 4mg/2ml Vial IV 04/17/25 12:04 4 mg ONCE ONE Administration Sodium Chloride 10 ml 04/17/25 12:09 04/17/25 12:10 Sodium Chloride 0.9% 10ml Syr (Rad Only) IV 04/17/25 12:10 10 ml ONCE ONE Administration ORDERS Category Date Time Status CT abdomen pelvis w con Stat Cat Scan 04/17/25 12:03 Completed Complete Blood Count Auto Diff Stat Lab 04/17/25 11:45 Completed Comprehensive Metabolic Panel Stat Lab 04/17/25 11:45 Completed HIV Combo Stat Lab 04/17/25 11:45 Received Hepatitis C Ab Qual. W/ RFX Stat Lab 04/17/25 11:45 Received Lactic Acid Stat Lab 04/17/25 11:45 Completed Lipase Stat Lab 04/17/25 11:45 Completed Troponin I Q3H Lab 04/17/25 15:00 Ordered Troponin I Q3H Lab 04/17/25 18:00 Ordered Troponin I Stat Lab 04/17/25 11:45 Completed Urinalysis and Microscopic Stat Lab 04/17/25 11:45 Completed Medical Decision Narrative: In summary patient is a 44-year-old male with past medical history of scrota above presents emergency department for evaluation of abdominal pain in the setting of periumbilical hernia. Constant pressure was used which reduced the hernia, it is not dusky and is by definition approaching incarceration. Workup will be conducted with hematologic labs CT of abdomen pelvis with IV contrast. Initial inventions include multimodal pain control, antiemetic. Initial workup reviewed by me no significant leukocytosis no transfusable anemia no TENISHA or critical electrolyte abnormality initial troponin undetectably low lipase normal urinalysis interpreted by me and not consistent with infection. Periumbilical hernia as demonstrated that does not contain GI tract but contains fat. Upon repeat evaluation patient is asymptomatic. Given that he has a reducible hernia no other abdominal pathology at this time patient is appropriate for outpatient management was given multiple return precautions verbalized understanding will follow-up on an outpatient basis with Dr. Butterfield. Critical Care Critical Care Time Critical Care Time: No
[2025-04-17] MEDS: SODIUM CHLORIDE 0.9% 10ML SYR (RAD ONLY) 10 ML IV (12:10)
[2025-04-17] MEDS: IOPAMIDOL-370 (76%);100ML BOTTLE 75 ML IV (12:10)
[2025-04-17 12:12] LABS: Hematocrit 46.9 % (42.0-52.0); Hemoglobin 16.1 g/dL (14.1-18.0); Immature Granulocytes % 0.5 %; Mean Corpuscular HGB Conc 34.3 g/dL (31.8-35.4); Mean Corpuscular Hemoglobin 31.3 pg (27.0-31.2); Mean Corpuscular Volume 91.1 fl (80-94); Nucleated Red Blood Cells % 0 %; Platelet Count 234 K/mm3 (142-424); Red Blood Count 5.15 M/mm3 (4.60-6.20); Red Cell Distribution Width-SD 41.1 fL; White Blood Count 8.8 K/mm3 (4.8-10.8)
[2025-04-17 12:17] VITALS: BP 115/59; PULSE 68; O2SAT 96
[2025-04-17] MEDS: MORPHINE 4MG/ML SYRINGE 4 MG IV (12:20)
[2025-04-17] MEDS: ONDANSETRON 4MG/2ML VIAL 4 MG IV (12:20)
[2025-04-17] MEDS: ACETAMINOPHEN 1,000MG/100ML VIAL 1000 MG IV (12:20)
[2025-04-17 12:21] LABS: Alanine Aminotransferase 50 U/L (12-78); Albumin Level 4.6 g/dl (3.5-5.0); Albumin/Globulin Ratio 1.3 (1.1-1.8); Alkaline Phosphatase 102 U/L (38-126); Anion Gap 14.4 mEq/L (5-15); Aspartate Amino Transferase 44 U/L (17-59); Bilirubin,Total 1.3 mg/dl (0.2-1.3); Blood Urea Nitrogen 18 mg/dl (9-20); Calcium 9.4 mg/dl (8.4-10.2); Carbon Dioxide 29 mmol/L (22.0-30.0); Chloride 101 mmol/L (98-107); Creatinine Clearance Estimated 88 mL/min (50-200); Creatinine,Serum 1.10 mg/dl (0.66-1.25); Estimated Glomerular Filt Rate 72 ml/min (>60); GFR (African American) 88 ML/MIN (>60); Globulin 3.6 g/dL (1.3-3.2); Glucose 114 mg/dl (74-100); Lipase 59 U/L (23-300); Potassium 4.4 mmoL/L (3.5-5.1); Sodium 140 mmol/L (136-145); Total Protein,Serum 8.2 g/dl (6.3-8.2)
[2025-04-17 12:27] LABS: Microscopic, Urine URINE MICROSCOPIC (MICROSCOPIC)
[2025-04-17 12:29] LABS: Bilirubin,Urine Negative (Negative); Color,Urine YELLOW (Yellow); Glucose,Urine (UA) Negative (Negative); Ketones,Urine Negative (Negative); Leukocyte Esterase,Urine Negative (Negative); PH,Urine 6.0 (5.0-8.5); Protein,Urine Negative (Negative); Specific Gravity, Urine 1.025 (1.005-1.030); Urobilinogen,Urine 0.2 EU/dl (0.2)
[2025-04-17 12:31] VITALS: BP 123/67; PULSE 54; O2SAT 97
[2025-04-17 12:35] LABS: Troponin I < 0.01 ng/ml (0.00-0.034)
[2025-04-17 12:45] VITALS: BP 119/69; PULSE 64; O2SAT 97
[2025-04-17 12:47] LABS: Bacteria,Urine Trace /lpf; Squamous Epithelial Cell,Urine Occasional #/hpf (0-5)
[2025-04-17 13:01] VITALS: BP 120/52; PULSE 47; O2SAT 97
[2025-04-17 13:50] VITALS: BP 120/52; PULSE 52; RESP 15; TEMP 36.9; O2SAT 97
[2025-04-17 14:16] LABS: Hepatitis C Ab Qual. W/ RFX NEGATIVE (Negative)
== END 2025-04-17 13:51 | disposition home or self-care (01) ==
PROVIDERS: Emergency Provider Emergency Medicine; PCP Internal Medicine Adolescent Medicine
DX: K42.9 Umbilical hernia without obstruction or gangrene (principal); R10.33 Periumbilical pain
CPT/HCPCS: 74177; 80053; 81001; 83605; 83690; 84484; 85025; 86803; 87389; 96374; 96375; 99284; J0131; J2270; J2405; Q9967